=== PATIENT | male | born 1990 | race Caucasian/White ===

== ENCOUNTER 2016-11-26 23:50 | Emergency (ER) | payer OTHER ==
[~2016-11-26] VITALS: Ht 170.1 cm; Wt 49.9 kg
[~2016-11-26 23:50] MED LIST: AUGMENTIN 875875 MG PO; BACTROBAN2% TP; CHEWABLE ASPIRI81 MG; CLARITIN-D 12 H1 TAB PO; COREG3.125 MG; COUMADIN2.5 M1; DOXYCYCLINE MO100 MG PO; FLONASE 0.05% 121 EA NAS; FLONASE ALLERG9.9 ML NAS; GLUCOTROL5 MG; IMDUR60 MG; KEFLEX500 MG PO; LOMOTIL 0.025 M1 TA1 PO; LOPID600 MG; MOTRIN800 MG PO; PRAVACHOL40 MG; PREDNISONE10 MG PO; SINEMET 25-1001 TA1; THE MEDICINE S400 IU; ULTRAM50 MG PO; XANAX0.25 MG; ZOFRAN ODT4 MG SL; ZOFRAN4 MG PO; ZYRTEC10 M2 PO; [UNRECOGNIZED DRUG - OTHER]
[2016-11-27] MEDS ORDERED: ZYRTEC10 MG PO (00:26)
[2016-11-27] MEDS ORDERED: AMOXICILLIN500 M2 PO (00:26)
== END 2016-11-27 01:08 | disposition home or self-care (01) ==
LOC: ED 23:50
DX: J01.90 Acute sinusitis, unspecified (principal)

== ENCOUNTER 2018-12-26 21:40 | Emergency (ER) | payer BC ==
[~2018-12-26] VITALS: Ht 170.1 cm; Wt 95.3 kg
[~2018-12-26 21:40] MED LIST changes: +AMOXICILLIN500 M2 PO; +ZYRTEC10 MG PO
[2018-12-26 22:30] LABS: BASO % 0.2 % (0.0-1.0); EOS # 0.1 10*3/uL (0.0-0.4); EOS % 0.5 % (1.0-4.0); HEMATOCRIT 39.2 % (42.0-52.0); HEMOGLOBIN 13.7 g/dl (14.0-18.0); LYMPH # 0.8 10*3/uL (1.3-4.4); LYMPH % 6.4 % (27.0-41.0); MEAN CELL VOLUME 82.2 fl (80.0-94.0); MEAN CORPUSCULAR HGB 28.7 pg (27.0-31.0); MEAN CORPUSCULAR HGB CONC 34.9 g/dl (33.0-37.0); MEAN PLATELET VOLUME 11.6 fl (9.6-12.3); MONO # 0.9 10*3/uL (0.1-1.0); NEUT % 85.6 % (47.0-73.0); PLATELET COUNT AUTOMATED 197 10*3/uL (130-400); RED BLOOD COUNT 4.77 10*6/uL (4.50-5.90); RED CELL DISTRI WIDTH 12.5 % (0-14.5); WHITE BLOOD COUNT 12.9 10*3/uL (4.8-10.8)
[2018-12-27] MEDS ORDERED: KEFLEX500 M1 PO ×2 (00:16→00:41)
== END 2018-12-27 01:02 | disposition home or self-care (01) ==
LOC: ED 21:40
PROVIDERS: Emergency Medicine Emergency Medical Services
DX: J03.00 Acute streptococcal tonsillitis, unspecified (principal)

== ENCOUNTER 2018-12-30 08:42 | Emergency (ER) | payer BC ==
[~2018-12-30] VITALS: Ht 170.1 cm; Wt 95.3 kg
--- NOTE | ~2018-12-30 | EKG ---
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
--- NOTE | ~2018-12-30 | EKG ---
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
[~2018-12-30 08:42] MED LIST changes: +KEFLEX500 M1 PO
[2018-12-30 09:23] LABS: BASO % 0.6 % (0.0-1.0); EOS # 0.2 10*3/uL (0.0-0.4); EOS % 2.1 % (1.0-4.0); HEMATOCRIT 39.1 % (42.0-52.0); HEMOGLOBIN 13.2 g/dl (14.0-18.0); LYMPH % 28.2 % (27.0-41.0); MEAN CELL VOLUME 84.8 fl (80.0-94.0); MEAN CORPUSCULAR HGB 28.6 pg (27.0-31.0); MEAN CORPUSCULAR HGB CONC 33.8 g/dl (33.0-37.0); MEAN PLATELET VOLUME 11.4 fl (9.6-12.3); MONO # 0.7 10*3/uL (0.1-1.0); MONO % 9.3 % (3.0-9.0); NEUT # 4.2 10*3/uL (2.3-7.9); NEUT % 59.4 % (47.0-73.0); PLATELET COUNT AUTOMATED 236 10*3/uL (130-400); RED BLOOD COUNT 4.61 10*6/uL (4.50-5.90); RED CELL DISTRI WIDTH 12.8 % (0-14.5); WHITE BLOOD COUNT 7.1 10*3/uL (4.8-10.8)
[2018-12-30 09:40] LABS: ALBUMIN 3.6 gm/dl (3.1-4.5); ALKALINE PHOSPHATASE 93 U/L (45-117); BUN 12 mg/dl (7-24); CHLORIDE 106 mmol/L (98-107); POTASSIUM 3.6 mmol/L (3.5-5.1); SGOT/AST 85 IU/L (3-35); SGPT/ALT 98 U/L (12-78); SODIUM 139 mmol/L (136-145); TOTAL PROTEIN 7.8 gm/dL (6.4-8.2)
[2018-12-30 09:54] LABS: ACT PARTIAL THROMBO TIME 30.9 SECONDS (20.8-31.5); INTERNATIONAL NORM RATIO 0.9 (2.0-3.5)
== END 2018-12-30 09:39 | disposition short-term general hospital (02) ==
LOC: ED 08:42
PROVIDERS: Emergency Medicine
DX: I21.3 ST elevation (STEMI) myocardial infarction of unspecified site (principal); R42 Dizziness and giddiness; K59.00 Constipation, unspecified

== ENCOUNTER 2019-08-13 22:31 | Emergency (ER) | payer BC ==
[~2019-08-13] VITALS: Ht 170.1 cm; Wt 97.5 kg
[2019-08-13] MEDS ORDERED: PREDNISONE10 MG PO (22:59)
[2019-08-13] MEDS ORDERED: VISTARIL50 MG PO (22:59)
== END 2019-08-13 23:26 | disposition home or self-care (01) ==
LOC: ED 22:31
DX: L23.7 Allergic contact dermatitis due to plants, except food (principal); I25.2 Old myocardial infarction

== ENCOUNTER 2019-09-28 23:12 | Emergency (ER) | payer BC ==
[~2019-09-28] VITALS: Ht 170.1 cm; Wt 99.8 kg
[~2019-09-28 23:12] MED LIST changes: +VISTARIL50 MG PO
[2019-09-29] MEDS ORDERED: ZITHROMAX250 MG PO (00:14)
[2019-09-29] MEDS ORDERED: PREDNISONE10 MG PO (00:14)
[2019-09-29] MEDS ORDERED: PROAIR HFA8.5 GM INH (00:14)
== END 2019-09-29 00:37 | disposition home or self-care (01) ==
LOC: ED 23:12
DX: J45.909 Unspecified asthma, uncomplicated (principal); M79.10 Myalgia, unspecified site; Z79.2 Long term (current) use of antibiotics; Z79.899 Other long term (current) drug therapy

== ENCOUNTER 2019-11-15 23:39 | Emergency (ER) | payer BC ==
[~2019-11-15] VITALS: Ht 170.1 cm; Wt 99.8 kg
[~2019-11-15 23:39] MED LIST changes: +PROAIR HFA8.5 GM INH; +ZITHROMAX250 MG PO
[2019-11-16] MEDS ORDERED: OMNICEF300 MG PO (01:11)
== END 2019-11-16 01:30 | disposition home or self-care (01) ==
LOC: ED 23:39
DX: H66.92 Otitis media, unspecified, left ear (principal); J45.909 Unspecified asthma, uncomplicated

== ENCOUNTER → 2021-11-30 | Outpatient (CLI) | payer BC ==
[~2021-11-30] MED LIST changes: +OMNICEF300 MG PO
== END | disposition home or self-care (01) ==
LOC: US 09:02
PROVIDERS: ATTEND Family Medicine
DX: K76.89 Other specified diseases of liver (principal); K82.8 Other specified diseases of gallbladder